=== PATIENT | female | born 1960 | race Caucasian/White ===

== ENCOUNTER 2023-09-21 12:19 | Day surgery (SDC) | payer MEDICARE, OTHER ==
[~2023-09-21] VITALS: Ht 175.3 cm; Wt 61.7 kg
[2023-09-21] VITALS (18 sets, daily range): BP systolic 84–126; BP diastolic 47–83; PULSE 63–122; RESP 10–17; TEMP 98.6; O2SAT 94–100
[2023-09-21] MEDS ORDERED: fentaNYL/PF 50MCG/1 ML 2ML syringe IV ONE (12:35)
[2023-09-21] MEDS ORDERED: normal saline 1000ml 1,000 ML IV SCH (12:35)
[2023-09-21] MEDS ORDERED: MIDAZolam 1mg/ml 10ml vial IV ONE (12:35)
[2023-09-21] MEDS ORDERED: ESTR1PAT81 TOP (13:11)
[2023-09-21] MEDS ORDERED: LEVO100T9 PO (13:11)
[2023-09-21] MEDS ORDERED: APIX5TAB3 PO (13:11)
[2023-09-21] MEDS ORDERED: METO50TA16 PO (13:11)
[2023-09-21] MEDS ORDERED: TRAZ150T78 PO (13:11)
[2023-09-21] MEDS ORDERED: VENL-191 PO (13:11)
[2023-09-21] MEDS ORDERED: ALBU10.7 INH (13:11)
[2023-09-21] MEDS ORDERED: ZINC100T2 PO (13:13)
[2023-09-21 13:15] LABS: BASOPHILS % (AUTO) 0.6 % (0-1); EOSINOPHILS # (AUTO) 0.1 X10'3 (0-0.9); EOSINOPHILS % (AUTO) 0.7 % (0-6); HEMATOCRIT 39.1 % (35.0-45.0); LYMPHOCYTES # (AUTO) 1.7 X10'3 (1.1-4.8); LYMPHOCYTES % (AUTO) 22.2 % (21-51); MEAN CORPUSCULAR HEMOGLOBIN 33.7 PG (27.0-31.0); MEAN CORPUSCULAR HGB CONC 33.3 g/dL (33.0-36.5); MEAN CORPUSCULAR VOLUME 101.2 FL (78-98); MEAN PLATELET VOLUME 9.2 FL (7.4-10.4); MONOCYTES # (AUTO) 0.5 X10'3 (0-0.9); MONOCYTES % (AUTO) 6.2 % (2-12); NEUTROPHILS # (AUTO) 5.3 X10'3 (1.8-7.7); NEUTROPHILS % (AUTO) 70.3 % (42-75); PLATELET COUNT 280 X10'3 (140-440); RED BLOOD COUNT 3.86 X10'6 (4.20-5.60); RED CELL DISTRIBUTION WIDTH 15.8 % (11.5-14.5); WHITE BLOOD COUNT 7.6 X10'3 (4.5-11.0)
== END 2023-09-21 15:20 | disposition home or self-care (01) ==
LOC: SSTAY O 12:19
PROVIDERS: ATTEND Student in an Organized Health Care Education/Training Program
DX: I48.92 Unspecified atrial flutter (principal); I48.91 Unspecified atrial fibrillation; J44.9 Chronic obstructive pulmonary disease, unspecified; Z79.01 Long term (current) use of anticoagulants; Z79.899 Other long term (current) drug therapy; Z87.891 Personal history of nicotine dependence; Z88.5 Allergy status to narcotic agent; Z88.8 Allergy status to other drugs, medicaments and biological substances
CPT/HCPCS: 36415; 85025; 92960; 93005; J2250; J3010; J7030; A4620